=== PATIENT | male | born 1990 | race Caucasian/White ===

== ENCOUNTER 2017-12-12 13:19 | Emergency (ER) | payer OTHER ==
[~2017-12-12] VITALS: Ht 193 cm; Wt 102.1 kg
[2017-12-12] MEDS ORDERED: KETOROLAC TROMETHAMINE 30 MG/ML VIAL IV STA (13:26)
[2017-12-12] MEDS ORDERED: VANCOMYCIN 1GM/NS 250 ML 250 ML IV ONE (13:30)
[2017-12-12 14:04] LABS: BASOPHILS # (AUTO) 0.1 (0.0-0.1); BASOPHILS % 0.6 % (0.0-1.0); EOSINOPHILS # (AUTO) 0.5 (0.0-0.4); EOSINOPHILS % 5.2 % (0.0-6.0); HEMATOCRIT 41.5 % (38.2-49.6); HEMOGLOBIN 14.4 g/dL (14.0-18.0); LYMPHOCYTES # (AUTO) 2.6 (1.0-3.2); LYMPHOCYTES % 28.9 % (18.0-39.1); MEAN CORPUSCULAR HEMOGLOBIN 29.7 pg (28-32); MEAN CORPUSCULAR HGB CONC 34.7 g/dL (31-35); MEAN CORPUSCULAR VOLUME 85.6 fL (81-99); MONOCYTES # (AUTO) 0.5 (0.2-0.8); MONOCYTES % 5.9 % (4.4-11.3); NEUTROPHILS # (AUTO) 5.2 (2.1-6.9); NEUTROPHILS % 59.1 % (38.7-80.0); PLATELET COUNT 275 x10e3/uL (140-360); RED BLOOD COUNT 4.85 x10e6/uL (4.3-5.7); RED CELL DISTRIBUTION WIDTH 11.7 % (11.7-14.4)
[2017-12-12 14:25] LABS: BLOOD UREA NITROGEN 17 mg/dL (7-26); BUN/CREATININE RATIO 14 (6-25); CALCIUM 10.2 mg/dL (8.4-10.2); CARBON DIOXIDE 27 mmol/L (22-29); CHLORIDE 100 mmol/L (98-107); CREATININE, SERUM 1.19 mg/dL (0.72-1.25); EST GLOMERULAR FILTRATION RATE > 60 ML/MIN (60-); GLUCOSE 119 mg/dL (74-118); SODIUM 140 mmol/L (136-145)
[2017-12-12 16:06] VITALS: BP 142/76
== END 2017-12-12 16:16 | disposition home or self-care (01) ==
LOC: ER 13:19
DX: M70.42 Prepatellar bursitis, left knee (principal)
CPT/HCPCS: 36415; 80048; 85025; 87040; 99283; J1885; J3370

== ENCOUNTER 2017-12-13 13:23 | Emergency (ER) | END 2017-12-13 14:18 | disposition left against medical advice (07) | LOC: ER 13:23 | DX: Z53.21 Procedure and treatment not carried out due to patient leaving prior to being seen by health care provider (principal) ==

== ENCOUNTER 2018-12-02 22:10 | Emergency (ER) | payer OTHER ==
[~2018-12-02] VITALS: Ht 193 cm; Wt 108.9 kg
--- OUTSIDE RECORDS SUMMARY | 2018-12-02 22:12 | XMS REPORT | Continuity of Care Document ---
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 Active [facility] Albuterol 0.83 MG/ML Inhalant Solution albuterol sulfate 2.5 mg/3 mL (0.083 %) solution for nebulization Active [facility] Amoxicillin 875 MG / Clavulanate 125 MG Oral Tablet amoxicillin 875 mg-potassium clavulanate 125 mg tablet Active [facility] 200 ACTUAT Albuterol 0.09 MG/ACTUAT Metered Dose Inhaler [ProAir] ProAir HFA 90 mcg/actuation aerosol inhaler Active [facility] Allergies, Adverse Reactions, Alerts No Known Medication Allergies Immunizations No Data Provided for This Section Results Order Name Results Value Reference Range Date Interpretation Comments Source Influenza A negative 04/14/2016 [facility] Influenza B positive 04/14/2016 [facility] Pathology Reports No Data Provided for This Section Diagnostic Reports No Data Provided for This Section Consultation Notes No Data Provided for This Section Discharge Summaries No Data Provided for This Section History and Physicals No Data Provided for This Section Vital Signs Vital Sign Value Date Comments Source Diastolic (mm Hg) 78 04/14/2016 [facility] Height 76 04/14/2016 [facility] Systolic (mm Hg) 118 04/14/2016 [facility] Weight 225 04/14/2016 [facility] Diastolic (mm Hg) 80 11/07/2015 [facility] Height 76 11/07/2015 [facility] Systolic (mm Hg) 124 11/07/2015 [facility] Weight 232 11/07/2015 [facility] Encounters Location Location Details Encounter Type Encounter Number Reason For Visit Attending Provider ADM Date DC Date Status Source [place] - [id number] Araceli Chengunnar, [employer] SERVER: [address] [place] [address], Ph. [phone] [id number] Araceli Pageloyda 11/07/2015 [facility] [place] [id number] Noe Young, [facility]: [address] [place] [address], Ph. [id number] Noe Young 04/14/2016 [facility] Procedures No Data Provided for This Section Assessment and Plan No Data Provided for This Section Plan of Care No Data Provided for This Section Social History Social History Date Source Smoking Status Never Smoker 07/19/2011 [facility] Family History No Data Provided for This Section Advance Directives No Data Provided for This Section Functional Status No Data Provided for This Section
--- OUTSIDE RECORDS SUMMARY | 2018-12-02 22:12 | XMS REPORT | Clinical Summary ---
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 Active testosterone cypionate Inject 200 mg 0 (DEPOTESTOTERONE into the CYPIONATE) 200 mg/mL shoulder, injection thigh, or buttocks every 7 days. Pt takes on Mondays. Started this week 12/11/17 Active keTOROlac (TORadol) 10 mg Take 10 mg by 0 tablet mouth every 6 (six) hours as needed for moderate pain. Active Saccharomyces boulardii Take 250 mg 0 (FLORASTOR) 250 mg by mouth 2 capsule (two) times a day. Pt has not started yet 12/13/17. Active cetirizine (ZyrTEC) 10 mg Take 10 mg by 0 capsule mouth daily as needed. Active clindamycin (CLEOCIN) 300 Take 300 mg 0 MG capsule by mouth every 6 (six) hours. Active cephalexin (KEFLEX) 500 Take 500 mg 0 MG capsule by mouth every 6 (six) hours. 12/15/2017 Discontinued (Stop Taking at Discharge) vancomycin HCl Infuse into a 0 (VANCOMYCIN IV) venous catheter once. Pt had an IV vancomycin that ran an 1.5 hours 01/12/2018 acetaminophen-codeine Take 1-2 20 tablet 0 (TYLENOL WITH CODEINE #3) tablets by 8 300-30 mg per tablet mouth every 6 (six) hours as needed for moderate pain for up to 5 days. 02/06/2018 ondansetron ODT (ZOFRAN Take 1 tablet 12 tablet 0 ODT) 4 MG disintegrating (4 mg total) 8 tablet by mouth every 8 (eight) hours as needed for nausea for up to 30 days. Active Problems Problem Noted Date Asthma 12/14/2017 Cellulitis of left knee 12/13/2017 Encounters Care Team Description Date Type Specialty Jerry Patterson MD Sprain of right ankle, unspecified ligament, initial encounter (Primary Dx) 01/07/2018 Emergency Emergency Medicine Ramiro Tompkins MD TeqwimAnshu iniguez DO Cellulitis of left knee (Primary Dx) 12/13/2017 Hospital General Internal Medicine - Encounter 12/15/2017 after 12/01/2017 Social History Date Tobacco Use Types Packs/Day Years Used Never Smoker Smokeless Tobacco: Never Used Drinks/Week oz/Week Comments Alcohol Use sometimes Yes Sex Assigned at Date Recorded Not on file Industry Job Start Date Occupation Not on file Not on file Not on file Travel End Travel History Travel Start No recent travel history available. Last Filed Vital Signs Reading Time Taken Comments Vital Sign 117/65 01/07/2018 1:03 PM MAGNETIC RESONANCE IMAGING COORDINATOR Blood Pressure 98 01/07/2018 1:03 PM MAGNETIC RESONANCE IMAGING COORDINATOR Pulse 36.9 C (98.4 F) 01/07/2018 1:03 PM MAGNETIC RESONANCE IMAGING COORDINATOR Temperature 18 01/07/2018 1:03 PM MAGNETIC RESONANCE IMAGING COORDINATOR Respiratory Rate 98% 01/07/2018 1:03 PM MAGNETIC RESONANCE IMAGING COORDINATOR Oxygen Saturation - - Inhaled Oxygen Concentration 104 kg (230 lb) 01/07/2018 1:05 PM MAGNETIC RESONANCE IMAGING COORDINATOR Weight 193 cm (6' 4") 01/07/2018 1:05 PM MAGNETIC RESONANCE IMAGING COORDINATOR Height 28 01/07/2018 1:05 PM MAGNETIC RESONANCE IMAGING COORDINATOR Body Mass Index Plan of Treatment Health Maintenance Due Date Last Done Comments INFLUENZA VACCINE 10/04/2018 Procedures Comments Procedure Name Priority Date/Time Associated Diagnosis XR ANKLE 3+ VW RIGHT STAT 01/07/2018 1:58 PM MAGNETIC RESONANCE IMAGING COORDINATOR XR FOOT 3+ VW RIGHT STAT 01/07/2018 1:45 PM MAGNETIC RESONANCE IMAGING COORDINATOR WY APPLY LOWER LEG SPLINT Routine 01/07/2018 1:11 PM MAGNETIC RESONANCE IMAGING COORDINATOR ESTIMATED GFR Routine 12/15/2017 5:37 AM CDT BASIC METABOLIC PANEL Routine 12/15/2017 5:37 AM CDT HC COMPLETE BLD COUNT Routine 12/15/2017 W/AUTO DIFF 5:37 AM CDT VANCOMYCIN LEVEL, TROUGH Timed 12/14/2017 4:15 PM CDT MRI KNEE WO CONTRAST LEFT Routine 12/14/2017 10:11 AM CDT ESTIMATED GFR Routine 12/14/2017 4:27 AM CDT HC COMPLETE BLD COUNT Routine 12/14/2017 W/AUTO DIFF 4:27 AM CDT BASIC METABOLIC PANEL Routine 12/14/2017 4:27 AM CDT ESTIMATED GFR STAT 12/13/2017 3:45 PM CDT COMPREHENSIVE METABOLIC STAT 12/13/2017 PANEL 3:45 PM CDT HC COMPLETE BLD COUNT STAT 12/13/2017 W/AUTO DIFF 3:45 PM CDT BLOOD CULTURE, AEROBIC & Routine 12/13/2017 ANAEROBIC 3:45 PM CDT BLOOD CULTURE, AEROBIC & Routine 12/13/2017 ANAEROBIC 3:40 PM CDT XR KNEE 4+ VW LEFT STAT 12/13/2017 3:00 PM CDT after 12/01/2017 Results * XR Ankle 3+ Vw Right (01/07/2018 1:58 PM MAGNETIC RESONANCE IMAGING COORDINATOR) Specimen Narrative Performed At EXAMINATION:XR ANKLE 3VW RIGHT [facility] CLINICAL HISTORY:ankle paintwist COMPARISON:None. IMPRESSION: The right ankle is in normal anatomic alignment. No acute fracture or dislocation. No radiopaque foreign bodies are seen within the soft tissues. Circumferential soft tissue swelling is seen around the right ankle. No soft tissue gas. [id number] Procedure Note Hm Interface, Radiology Results Incoming - 01/07/2018 2:02 PM MAGNETIC RESONANCE IMAGING COORDINATOR EXAMINATION: XR ANKLE 3 VW RIGHT CLINICAL HISTORY: ankle pain twist COMPARISON: None. IMPRESSION: The right ankle is in normal anatomic alignment. No acute fracture or dislocation. No radiopaque foreign bodies are seen within the soft tissues. Circumferential soft tissue swelling is seen around the right ankle. No soft tissue gas. [id number] Performing Organization Address [facility] Phone Number [facility] [address] [place] [address] * XR Foot 3+ Vw Right (01/07/2018 1:45 PM MAGNETIC RESONANCE IMAGING COORDINATOR) Specimen Narrative Performed At EXAMINATION:[facility]:twist ankle and foot pain TECHNIQUE: 3 views of the right foot obtained. COMPARISON:None. IMPRESSION: Best seen on the lateral view is an avulsion fracture from the plantar base of the first distal phalanx with intra-articular extension through the hallux IP joint. 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 As well, there is marginal osteophytosis, joint space narrowing and sclerosis medially in the hallux IP joint indicating moderate posttraumatic arthropathy. Remaining visualized bones appear intact. No definite acute fracture identified. [facility]-[id number] Procedure Note Interface, Radiology Results Incoming - 01/07/2018 2:07 PM MAGNETIC RESONANCE IMAGING COORDINATOR EXAMINATION: XR FOOT 3 VW RIGHT CLINICAL HISTORY: twist ankle and foot pain TECHNIQUE: 3 views of the right foot obtained. COMPARISON: None. IMPRESSION: Best seen on the lateral view is an avulsion fracture from the plantar base of the first distal phalanx with intra-articular extension through the hallux IP joint. 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 As well, there is marginal osteophytosis, joint space narrowing and sclerosis medially in the hallux IP joint indicating moderate posttraumatic arthropathy. Remaining visualized bones appear intact. No definite acute fracture identified. [facility]-[id number] Performing Organization Address [facility] Phone Number [facility] [address] [place] [address] * SPLINT APPLICATION (01/07/2018 1:11 PM MAGNETIC RESONANCE IMAGING COORDINATOR) Narrative Performed At Jerry Patterson MD 01/09/20183:19 PM Splint Application Performed by: INGRIS CALLOWAY Authorized by: JERRY PATTERSON Consent: Consent obtained:Verbal Consent given by:Patient Risks discussed:Numbness, swelling, pain and discoloration Pre-procedure details: Sensation:Normal Procedure details: Laterality:Right Location:Ankle Splint type:Short leg Supplies:Cotton padding, Ortho-Glass and elastic bandage Post-procedure details: Pain:Improved Sensation:Normal Skin color:[place] Patient tolerance of procedure:Tolerated well, no immediate complications * Estimated GFR (12/15/2017 5:37 AM CDT) Only the most recent of 3 results within the time period is included. [facility] Estimated GFR >=90 mL/min/1.73 m2 [facility] Comment: DEPARTMENT OF [facility] PATHOLOGY AND rpretation [place] [address] MEDICINE >=90 Normal or high G2 60-89Mildly decreased S5o94-30 Mildly to moderately decreased S7c45-60 Moderately to severely decreased G4 15-29Severely decreased G5 <15Kidney failure The eGFR was calculated using the Chronic Kidney Disease Epidemiology Collaboration (CKD-EPI) equation. Interpretation is based on recommendations of the National Kidney Foundation-Kidney Disease Outcomes Quality Initiative (NKF-KDOQI) published in 2014. Specimen Plasma specimen Performing Organization Address City/State/Zipcode Phone Number [facility] [address] [place] [address] PATHOLOGY AND TEAM INTERVAL [facility] * CBC with platelet and differential (12/15/2017 5:37 AM CDT) Only the most recent of 3 results within the time period is included. [facility] WBC 7.55 4.50 - 11.00 k/uL [facility] DEPARTMENT OF PATHOLOGY AND GENOMIC MEDICINE RBC 4.12 (L) 4.40 - 6.00 m/uL [facility] DEPARTMENT OF PATHOLOGY AND GENOMIC MEDICINE HGB 12.1 (L) 14.0 - 18.0 g/dL [facility] DEPARTMENT OF PATHOLOGY AND GENOMIC MEDICINE HCT 35.5 (L) 41.0 - 51.0 % [facility] DEPARTMENT PATHOLOGY AND GENOMIC MEDICINE MCV 86.2 82.0 - 100.0 fL [facility] DEPARTMENT OF PATHOLOGY AND GENOMIC MEDICINE MCH 29.4 27.0 - 34.0 pg [facility] DEPARTMENT OF PATHOLOGY AND GENOMIC MEDICINE MCHC 34.1 31.0 - 37.0 g/dL [facility] DEPARTMENT OF PATHOLOGY AND GENOMIC MEDICINE RDW - SD 36.9 (L) 37.0 - 55.0 fL [facility] DEPARTMENT OF PATHOLOGY AND GENOMIC MEDICINE MPV 9.8 8.8 - 13.2 fL [facility] DEPARTMENT OF PATHOLOGY AND GENOMIC MEDICINE Platelet count 212 150 - 400 k/uL [facility] DEPARTMENT OF PATHOLOGY AND GENOMIC MEDICINE Nucleated RBC 0.00 /100 WBC [facility] DEPARTMENT OF PATHOLOGY AND GENOMIC MEDICINE Neutrophils 66.8 39.0 - 69.0 % [facility] DEPARTMENT OF PATHOLOGY AND GENOMIC MEDICINE Lymphocytes 19.6 (L) 25.0 - 45.0 % [facility] DEPARTMENT OF PATHOLOGY AND GENOMIC MEDICINE Monocytes 7.5 0.0 - 10.0 % [facility] DEPARTMENT OF PATHOLOGY AND GENOMIC MEDICINE Eosinophils 5.4 (H) 0.0 - 5.0 % [facility] DEPARTMENT OF PATHOLOGY AND GENOMIC MEDICINE Basophils 0.4 0.0 - 1.0 % [facility] DEPARTMENT OF PATHOLOGY AND GENOMIC MEDICINE Specimen Blood Performing Organization Address [facility] Phone Number [address] [place] [address] PATHOLOGY [facility] * Basic metabolic panel (12/15/2017 5:37 AM CDT) Only the most recent of 2 results within the time period is included. [facility] Sodium 140 135 - 148 mEq/L [facility] DEPARTMENT OF PATHOLOGY AND GENOMIC MEDICINE Potassium 4.5 3.5 - 5.0 mEq/L [facility] DEPARTMENT OF PATHOLOGY AND GENOMIC MEDICINE Chloride 102 98 - 112 mEq/L [facility] DEPARTMENT OF PATHOLOGY AND GENOMIC MEDICINE CO2 30 24 - 31 mEq/L [facility] DEPARTMENT OF PATHOLOGY AND GENOMIC MEDICINE Anion gap 8@ANIO 7 - 15 mEq/L [facility] DEPARTMENT OF PATHOLOGY AND GENOMIC MEDICINE BUN 9 6 - 20 mg/dL [facility] DEPARTMENT OF PATHOLOGY AND GENOMIC MEDICINE Creatinine 1.10 0.70 - 1.20 mg/dL [facility] DEPARTMENT OF PATHOLOGY AND GENOMIC MEDICINE Glucose 103 (H) 65 - 99 mg/dL [facility] DEPARTMENT OF PATHOLOGY AND GENOMIC MEDICINE Calcium 9.6 8.3 - 10.2 mg/dL [facility] DEPARTMENT PATHOLOGY AND GENOMIC MEDICINE Specimen Plasma specimen Performing Organization Address [facility] Cent[facility]ode Phone Number [address] [place] [address] [facility] * Vancomycin level, trough (12/14/2017 4:15 PM CDT) [facility] Vancomycin, 13.9 10.0 - 20.0 ug/mL [facility] trough Comment: DEPARTMENT OF Therapeutic Ranges: PATHOLOGY AND Peak 30.0 - GENOMIC 40.0 ug/mL MEDICINE Mwewqj20.0 - 20.0 ug/mL Specimen Serum Performing Organization Address City/[facility]/Zipcode [place] [address] [place] [address] PATHOLOGY AND GENOMIC MEDICINE * MRI Knee Left Wo Contrast (12/14/2017 10:11 AM CDT) Specimen Narrative Performed At EXAMINATION:MRI KNEE WO CONTRAST LEFT [facility] CLINICAL HISTORY:Knee painxray AVN TECHNIQUE:Multiplanar multisequence MR imaging of theleft knee was performed without contrast. COMPARISON:None. IMPRESSION: MENISCI: Intact. CRUCIATE LIGAMENTS: Intact. COLLATERAL LIGAMENTS: Intact. ARTICULAR CARTILAGE: No focal abnormality. BONE MARROW: No focal abnormality. EXTENSOR MECHANISM: Focal increased signal at the proximal attachment of the patellar tendon, consistent with partial tearing and tendinitis (jumper's knee). Quadriceps tendon is intact. EFFUSION: There is a small joint effusion with minimal synovitis. SOFT TISSUES: Extensive anterior subcutaneous soft tissue edema consistent with cellulitis. No drainable fluid collection appreciated. [id number] Procedure Note [facility], Radiology Results Incoming - 12/14/2017 10:19 AM CDT EXAMINATION: MRI KNEE WO CONTRAST LEFT CLINICAL HISTORY: Knee pain xray AVN TECHNIQUE: Multiplanar multisequence MR imaging of the left knee was performed without contrast. COMPARISON: None. IMPRESSION: MENISCI: Intact. CRUCIATE LIGAMENTS: Intact. COLLATERAL LIGAMENTS: Intact. ARTICULAR CARTILAGE: No focal abnormality. BONE MARROW: No focal abnormality. EXTENSOR MECHANISM: Focal increased signal at the proximal attachment of the patellar tendon, consistent with partial tearing and tendinitis (jumper's knee). Quadriceps tendon is intact. EFFUSION: There is a small joint effusion with minimal synovitis. SOFT TISSUES: Extensive anterior subcutaneous soft tissue edema consistent with cellulitis. No drainable fluid collection appreciated. [id number] Performing Organization Address City/[facility]/Zipcode Phone Number [facility] [address] [place] [address] * Blood culture, aerobic & anaerobic (12/13/2017 3:45 PM CDT) Only the most recent of 2 results within the time period is included. Blood culture No growth after 5 days of [facility] DEPARTMENT isolate incubation. OF PATHOLOGY Comment: AND GENOMIC Specimen Information MEDICINE Specimen Source: Blood Specimen Site: Antecubital, left Specimen Blood - Antecubital, left Performing Organization Address City/State/Zipcode Phone Number [facility] DEPARTMENT OF [address] [place] [address] PATHOLOGY AND GENOMIC MEDICINE * Comprehensive metabolic panel (12/13/2017 3:45 PM CDT) Sodium 137 135 - 148 mEq/L [facility] DEPARTMENT OF PATHOLOGY AND GENOMIC MEDICINE Potassium 3.7 3.5 - 5.0 mEq/L [facility] DEPARTMENT OF PATHOLOGY AND GENOMIC MEDICINE Chloride 99 98 - 112 mEq/L [facility] DEPARTMENT OF PATHOLOGY AND GENOMIC MEDICINE CO2 28 24 - 31 mEq/L [facility] DEPARTMENT OF PATHOLOGY AND GENOMIC MEDICINE Anion gap 10@ANIO 7 - 15 mEq/L [facility] DEPARTMENT OF PATHOLOGY AND GENOMIC MEDICINE BUN 19 6 - 20 mg/dL [facility] DEPARTMENT OF PATHOLOGY AND GENOMIC MEDICINE Creatinine 1.40 (H) 0.70 - 1.20 mg/dL [facility] DEPARTMENT OF PATHOLOGY AND GENOMIC MEDICINE Glucose 95 65 - 99 mg/dL [facility] DEPARTMENT OF PATHOLOGY AND GENOMIC MEDICINE Calcium 9.0 8.3 - 10.2 mg/dL [facility] DEPARTMENT OF PATHOLOGY AND GENOMIC MEDICINE Protein 7.8 6.3 - 8.3 g/dL [facility] Comment: DEPARTMENT OF PATHOLOGY AND 4.6-7.0 g/dL GENOMIC 1 MEDICINE week 4.4-7.6 g/dL 7 months-1year 5.1-7.3 g/dL 1-2 years5.6-7 .5 g/dL >3 years6.0-8 .0 g/dL 18-150 6.3-8.3 g/dL Albumin 4.7 3.5 - 5.0 g/dL [facility] DEPARTMENT OF PATHOLOGY AND GENOMIC MEDICINE A/G ratio 1.5 0.7 - 3.8 [facility] DEPARTMENT OF PATHOLOGY AND GENOMIC MEDICINE Alkaline 48 40 - 129 U/L [facility] phosphatase DEPARTMENT OF PATHOLOGY AND GENOMIC MEDICINE AST 21 10 - 50 U/L [facility] DEPARTMENT OF PATHOLOGY AND GENOMIC MEDICINE ALT 26 5 - 50 U/L [facility] DEPARTMENT OF PATHOLOGY AND GENOMIC MEDICINE Total bilirubin 0.5 0.0 - 1.2 mg/dL [facility] DEPARTMENT OF PATHOLOGY AND GENOMIC MEDICINE Specimen Plasma specimen Performing Organization Address City/State/Zipcode Phone Number [facility] [address] [place] [address] PATHOLOGY AND GENOMIC MEDICINE * XR Knee 4+ Vw Left (12/13/2017 3:00 PM CDT) Specimen Narrative Performed At EXAMINATION:XR KNEE 4VW LEFT [facility] CLINICAL HISTORY:knee pain infection COMPARISON:None. IMPRESSION: There is no evidence of left knee fracture, dislocation, or joint effusion. Bone mineralization is normal. [facility]-[id number] Procedure Note Hm Interface, Radiology Results Incoming - 12/13/2017 3:16 PM CDT EXAMINATION: XR KNEE 4 VW LEFT CLINICAL HISTORY: knee pain infection COMPARISON: None. IMPRESSION: There is no evidence of left knee fracture, dislocation, or joint effusion. Bone mineralization is normal. [facility]-[id number] Performing Organization Address City/State/Zipcode Phone Number [facility] [address] [place] [address] after 12/01/2017 Insurance Type Payer Benefit Subscriber ID Effective Phone Address Plan / Dates Group O [facility] [employer] xxxxxxxxx 2017-P [employer] resent [place] ([place]) [place] [address] Advance Directives For more information, please contact: [phone] Patient Cage Unloader Explanation Type Date Recorded Advance Directives, 12/13/2017 2:29 PM Living Will and Medical Power of System Safety Engineer
[2018-12-02] MEDS ORDERED: CLINDAMYCIN HC300 MG PO (23:10)
[2018-12-02] MEDS ORDERED: BACTRIM DS TAB1 EACH PO (23:10)
--- NOTE | 2018-12-02 23:16 | Diagnostic Imaging Report ---
HAND 3+ VIEWS LEFT - 3 views HISTORY: Pain COMPARISON: None available. FINDINGS: Bones: No acute displaced fracture. Osseous alignment is within normal limits. Joints: The joint spaces are well-maintained. Soft tissues: The soft tissues appear unremarkable. IMPRESSION: No acute radiographic abnormality. Signed by: Dr. Carlos Sheehan MD on 12/02/2018 11:12 PM
[2018-12-02] MEDS ORDERED: RABIES VAC,PF CHICK-EMB CELL 2.5/KIT IM ONE (23:30)
[2018-12-02] MEDS ORDERED: RABIES IMMUNE GLOBULIN/PF 150 UNIT/ML VIAL IM ONE (23:30)
--- NOTE | 2018-12-03 00:18 | NUR ---
medication is not available, [facility], in addition [place] animal control notified. Officer Anders has 7 days to follow up to get rabies igg and vaccine, instructions given by nova botello and dr shen in full, officer anders fully understood discharge instructions and had no further questions from this medical team. Officer Anders will follow up in addition with the [facility] animal control and [facility].
[2018-12-03 00:23] VITALS: BP 133/91
== END 2018-12-03 00:29 | disposition home or self-care (01) ==
LOC: ER 22:10
DX: S60.471A Other superficial bite of left index finger, initial encounter (principal); Y99.0 Civilian activity done for income or pay
CPT/HCPCS: 99283